=== PATIENT | female | born 2000 | race Caucasian/White ===

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

== ENCOUNTER 2018-01-24 07:08 | Emergency (ER) | payer BC, OTHER ==
[~2018-01-24] VITALS: Ht 154.9 cm; Wt 42.2 kg
[~2018-01-24 07:08] MED LIST changes: +BIRTH CONTROL PO; -DEXM10TA PO; +TRAZ-147 PO; +VENL37.55 PO; +WELLBUTRIN PO
--- NOTE | 2018-01-24 07:30 | NUR ---
Patient discharged to home in stable conditon with mother. Written and verbal after care instructions given. Patient verbalizes understanding of instructions.
== END 2018-01-24 07:31 | disposition home or self-care (01) ==
LOC: ER 07:08
DX: T16.2XXA Foreign body in left ear, initial encounter (principal); F17.210 Nicotine dependence, cigarettes, uncomplicated; Z79.3 Long term (current) use of hormonal contraceptives; Z79.899 Other long term (current) drug therapy; X58.XXXA Exposure to other specified factors, initial encounter; Y93.89 Activity, other specified; Y92.89 Other specified places as the place of occurrence of the external cause; Y99.8 Other external cause status
CPT/HCPCS: A4663

== ENCOUNTER 2019-10-06 02:36 | Inpatient (IN) | payer BC, OTHER ==
[~2019-10-06] VITALS: Ht 157.5 cm; Wt 47.7 kg
[~2019-10-06 02:36] MED LIST changes: -TRAZ-147 PO; +TRAZ-214 PO
--- NOTE | 2019-10-06 03:04 | NUR ---
ER MD at bedside for patient evaluation
[2019-10-06 03:36] LABS: BASOPHILS % (AUTO) 0.6 % (0.0-2.0); EOSINOPHILS # (AUTO) 0.4 K/uL (0.0-0.7); EOSINOPHILS % (AUTO) 5.4 % (0.0-7.0); HEMATOCRIT 41.2 % (31.2-41.9); HEMOGLOBIN 13.8 g/dL (10.9-14.3); LYMPHOCYTES # (AUTO) 2.2 K/uL (20.0-40.0); LYMPHOCYTES % (AUTO) 32.5 % (20.5-51.5); MEAN CORPUSCULAR HEMOGLOBIN 31.3 uug (24.7-32.8); MEAN CORPUSCULAR HGB CONC 34 g/dL (32.3-35.6); MEAN CORPUSCULAR VOLUME 93.2 fL (75.5-95.3); MONOCYTES # (AUTO) 0.6 K/uL (2.0-10.0); MONOCYTES % (AUTO) 8.8 % (0.0-11.0); NEUTROPHILS # (AUTO) 3.6 K/uL (1.8-8.9); NEUTROPHILS % (AUTO) 52.7 % (38.5-71.5); PLATELET COUNT (AUTO) 206 K/uL (179-408); RED BLOOD CELL COUNT(AUTO) 4.42 MIL/uL (3.63-4.92); WHITE BLOOD COUNT (AUTO) 6.9 K/uL (3.8-11.8)
[2019-10-06 03:43] LABS: CARBON DIOXIDE 25 mmol/L (21-32); CHLORIDE 104 mmol/L (98-107); CREATININE 0.7 mg/dL (0.6-1.3); GLUCOSE 113 mg/dL (74-106); POTASSIUM 3.6 mmol/L (3.5-5.1); UREA NITROGEN, BLOOD 13 mg/dL (7-18)
[2019-10-06 03:49] LABS: ALANINE AMINOTRANSFERASE 11 U/L (14-59); ALKALINE PHOSPHATASE 71 U/L (50-136); ASPARTATE AMINOTRANSFERASE 11 U/L (15-37); BILIRUBIN,DIRECT 0.1 mg/dL (0.0-0.2); BILIRUBIN,TOTAL 0.4 mg/dL (0.2-1.0); TOTAL PROTEIN, SERUM 7.2 g/dL (6.4-8.2)
[2019-10-06 03:56] LABS: ETHANOL < 3 MG/DL (0-0)
--- NOTE | 2019-10-06 04:43 | NUR ---
Panel call placed at ths time to [facility]
--- NOTE | 2019-10-06 04:48 | NUR ---
[phone] - Lyubov Daughter, contact info
--- NOTE | 2019-10-06 04:52 | NUR ---
Report given to Yahaira HUTCHISON on Tele
--- NOTE | 2019-10-06 05:20 | NUR ---
Pt. admitted to Tele , under care of Sandra Hannah NP. Belongs List completed
[2019-10-06] MEDS ORDERED: LEVETIRACETAM 500 MG/5 ML VIAL IV ONE (05:23)
[2019-10-06] MEDS ORDERED: LORAZEPAM 2 MG/1 ML VIAL IV PRN (05:30)
[2019-10-06] MEDS ORDERED: LEVETIRACETAM IV 1,000 MG in IV DEXTROSE 5% 100 ML IV ONE (05:30)
[2019-10-06] MEDS ORDERED: MAGNESIUM HYDROXIDE 30 ML LIQUID UDC PO PRN (05:30)
[2019-10-06] MEDS ORDERED: Z GUARD REMEDY PASTE 57 GM TUBE TOP PRN (05:30)
[2019-10-06] MEDS ORDERED: THIAMINE HCL INJ 100 MG in IV DEXTROSE 5% 50 ML IV SCH (05:30)
[2019-10-06] MEDS ORDERED: LEVETIRACETAM IV 500 MG in IV DEXTROSE 5% 100 ML IV ONE (05:30)
[2019-10-06] MEDS ORDERED: ACETAMINOPHEN 325 MG TABLET PO PRN (05:30)
[2019-10-06] MEDS ORDERED: ONDANSETRON 4 MG/2 ML VIAL IV PRN (05:30)
[2019-10-06 06:24] VITALS: BP 102/39
[2019-10-06] MEDS: IV NS 1000 ML 1,000 ML IV PRN ×2 (06:33→17:36)
--- NOTE | 2019-10-06 07:01 | NUR ---
Pt received at 0530. Awake, alert and verbally responsive. Admission process initiated. No signs of pain or discomfort. Seizure precautions reinforced. Carried out all admission orders. All belongings accounted for. Education on Seizure and Smoking Cessation started. Fluids started on R AC 20 G NS at 100cc per hour. Explained NPO orders on patient. All questions answered. Initial physical and initial general assessment done. Care plan started. Will endorse for admission continuity of care to incoming nurse.
--- NOTE | 2019-10-06 07:30 | NUR ---
Received patient in bed, asleep but able to wake up when called by name. No signs of distress noted, No SOB. Denies pain or discomfort. On NPO. Remains on Seizure and Aspiration Precautions. Kept clean and comfortable. Will continue to monitor.
[2019-10-06] MEDS: MULTIVITAMINS,THERAPEUTIC TABLET PO SCH (09:00)
[2019-10-06] MEDS: FOLIC ACID/VITAMIN B COMP W-C TABLET PO SCH (09:00)
[2019-10-06] MEDS ORDERED: THIAMINE HCL INJ 100 MG in IV DEXTROSE 5% 50 ML IV ONE (09:00)
[2019-10-06] MEDS: PANTOPRAZOLE SODIUM 40 MG VIAL IV SCH (09:34)
[2019-10-06 11:19] VITALS: BP 90/40
[2019-10-06] MEDS ORDERED: HOME MED MISCELLANEOUS XX SCH (11:45)
[2019-10-06 15:16] VITALS: BP 89/32
--- NOTE | 2019-10-06 18:20 | NUR ---
312 Patient is awake and verbally responsive. No signs of distress noted. Tylenol 650mg PO for headache. Patient was placed on Regular diet as tolerated. Patient has No Episode of Seizure throughout this Shift. Patient will have a EEG tomorrow around 10-11AM, Patient and Responsible Republican is aware. IVF still running at 100cc/hr on Left Ac, No signs of Infiltration noted. All needs attended and met. Will endorse to Oncoming Nurse.
[2019-10-06 20:00] VITALS: BP 102/46
[2019-10-06] MEDS: LEVETIRACETAM IV 500 MG in IV DEXTROSE 5% 100 ML IV SCH (20:35)
[2019-10-06] MEDS ORDERED: ETHINYL ESTRADIOL PO SCH (21:00)
[2019-10-06] MEDS ORDERED: TRAZODONE 100 MG TABLET PO SCH (21:00)
[2019-10-06] MEDS ORDERED: NORGESTIMATE PO SCH (21:00)
[2019-10-07] MEDS: IV NS 1000 ML 1,000 ML IV PRN (02:37)
[2019-10-07 06:26] VITALS: BP 96/47
--- NOTE | 2019-10-07 08:00 | NUR ---
Received patient in Bed, awake and verbally responsive. No signs of distress noted. No SOB. Patient with complain of Right Chest tightness/pressure with pain Scale of 5/10. Dr. Arroyo made aware with Order Troponin and EKG STAT.
[2019-10-07] MEDS: FOLIC ACID/VITAMIN B COMP W-C TABLET PO SCH (08:24)
[2019-10-07] MEDS: LEVETIRACETAM IV 500 MG in IV DEXTROSE 5% 100 ML IV SCH (08:24)
[2019-10-07] MEDS: PANTOPRAZOLE SODIUM 40 MG VIAL IV SCH (08:24)
[2019-10-07] MEDS: MULTIVITAMINS,THERAPEUTIC TABLET PO SCH (08:25)
[2019-10-07] MEDS ORDERED: THIAMINE HCL 100 MG TABLET PO SCH (09:00)
[2019-10-07 09:36] LABS: BASOPHILS % (AUTO) 0.6 % (0.0-2.0); EOSINOPHILS # (AUTO) 0.3 K/uL (0.0-0.7); HEMATOCRIT 35.2 % (31.2-41.9); HEMOGLOBIN 11.7 g/dL (10.9-14.3); LYMPHOCYTES # (AUTO) 2.2 K/uL (20.0-40.0); LYMPHOCYTES % (AUTO) 45.3 % (20.5-51.5); MEAN CORPUSCULAR HEMOGLOBIN 31.5 uug (24.7-32.8); MEAN CORPUSCULAR HGB CONC 33 g/dL (32.3-35.6); MEAN CORPUSCULAR VOLUME 94.6 fL (75.5-95.3); MONOCYTES # (AUTO) 0.4 K/uL (2.0-10.0); MONOCYTES % (AUTO) 7.4 % (0.0-11.0); NEUTROPHILS % (AUTO) 39.7 % (38.5-71.5); PLATELET COUNT (AUTO) 174 K/uL (179-408); RED BLOOD CELL COUNT(AUTO) 3.72 MIL/uL (3.63-4.92); WHITE BLOOD COUNT (AUTO) 4.9 K/uL (3.8-11.8)
[2019-10-07] MEDS ORDERED: VARE1TAB PO ×2 (09:50)
[2019-10-07 09:53] LABS: THYROID STIMULATING HORMONE 2.202 mIU/mL (0.358-3.740)
[2019-10-07 10:14] LABS: MAGNESIUM 1.7 mg/dL (1.8-2.4); PHOSPHOROUS 3.2 mg/dL (2.5-4.9); POTASSIUM 3.6 mmol/L (3.5-5.1)
[2019-10-07] MEDS ORDERED: LEVE500T9 PO ×2 (10:37→11:39)
[2019-10-07 11:40] VITALS: BP 95/49
--- NOTE | 2019-10-07 11:54 | NUR ---
Patient is awake and verbally responsive. No signs of distress noted. No SOB. No complain of Pain or discomfort. EEG was done. Dr. Arroyo with Discharge Order, Discharge Instructions provided and verbalized Understanding. Removed IV site, alarm security or surveillance monitor and Wrist band. All belongings signed and sent to Patient. patient is accompanied by her father in stable condition.
[2019-10-07] MEDS ORDERED: THIAMINE HCL INJ 100 MG in IV DEXTROSE 5% 50 ML IV SCH (14:00)
== END 2019-10-07 11:55 | disposition home or self-care (01) | DRG 101 ==
LOC: ER 02:38 → TELE3 05:27
PROVIDERS: ADMIT Registered Nurse; ATTEND Nurse Practitioner Acute Care
DX: R56.9 Unspecified convulsions (principal); J45.909 Unspecified asthma, uncomplicated; F32.9 Major depressive disorder, single episode, unspecified; F41.9 Anxiety disorder, unspecified; Z87.891 Personal history of nicotine dependence; G43.909 Migraine, unspecified, not intractable, without status migrainosus; F19.11 Other psychoactive substance abuse, in remission; T50.905A Adverse effect of unspecified drugs, medicaments and biological substances, initial encounter; Y92.013 Bedroom of single-family (private) house as the place of occurrence of the external cause
CPT/HCPCS: 36415; 70030-TC; 70450; 71045; 83735; 84100; 84443; 85025; 85651; 93005; A4663; C9113; G0378; G0480; J1953; J3411; J7030; J7060